=== PATIENT | male | born 1950 | race Caucasian/White ===

== ENCOUNTER 2022-04-01 06:56 | Day surgery (SDC) | payer OTHER, MEDICARE ==
[2022-04-01] MEDS ORDERED: LIDOCAINE 1% MPF 30 ML VIAL ONE (07:15)
[2022-04-01] MEDS ORDERED: GLYCOPYRROLATE 0.2 MG/ML SYR ONE (07:15)
[2022-04-01] MEDS ORDERED: propofoL 200 MG/20 ML VIAL IV ONE (07:15)
[2022-04-01] MEDS ORDERED: Ringers Lactate 1,000 ML IV ONE (07:23)
[2022-04-01 07:34] VITALS: O2SAT 100
--- NOTE | 2022-04-01 08:34 | ENDO RPT ---
[address], [address] COLONOSCOPY PROCEDURE REPORT EXAM DATE: 04/01/2022 PATIENT NAME: Kenisha Pinzon MR #: [id number] BIRTHDATE: 1950 ATTENDING: Jeff Rhoades DR STATUS: outpatient ASSESSMENT MANAGER: Liz Argueta and Dunia Corley RN INDICATIONS: The patient is a 72 yr old Male here for a colonoscopy due to colon cancer screening PROCEDURE PERFORMED: Screening Colonoscopy and Colonoscopy MEDICATIONS: Per Anesthesia. ESTIMATED BLOOD LOSS: None CONSENT: The patient understands the risks and benefits of the procedure and understands that these risks include, but are not limited to: sedation, allergic reaction, infection, perforation and/or bleeding. Alternative means of evaluation and treatment include, among others: physical exam, x-rays, and/or surgical intervention. The patient elects to proceed with this endoscopic procedure. DESCRIPTION OF PROCEDURE: During intra-op preparation period all mechanical medical equipment was checked for proper function. Hand hygiene and appropriate measures for infection prevention was taken. Procedure, possible complications, alternatives including, but not limited to possibility of bleeding, perforation, tear, infection, sepsis, need for surgery, need for blood transfusion, were explained to the patient. After the risks, benefits and alternatives of the procedure were thoroughly explained, Informed consent was verified, confirmed and timeout was successfully executed by the treatment team. The patient was placed in the left lateral position. A digital rectal exam was performed and revealed an enlarged prostate and A digital rectal exam was performed and revealed internal hemorrhoids. After appropriate level of anesthesia, the scope was passed. The EC-[id number] ([id number]) endoscope was introduced through the anus and advanced to the cecum, which was identified by both the appendix and ileocecal valve. The quality of the prep was fair. The instrument was then slowly withdrawn as the colon was fully examined. Scope withdrawal time was 10 minutes. COLON FINDINGS: Moderate sized internal hemorrhoids were found. Enlarged Prostate. Retroflexed views revealed no abnormalities. The scope was then completely withdrawn from the patient and the procedure terminated. ADVERSE EVENTS: There were no complications. IMPRESSIONS: 1. Moderate sized internal hemorrhoids 2. Enlarged Prostate RECOMMENDATIONS: 1. fiber rich diet 2. Monitor for any evidence of rectal bleeding. 3. yearly hemoquant 4. yearly hemoccult starting in 4 years 5. hemorrhoidal hygiene 6. follow up with primary care to discuss enlarged prostate RECALL: Return in 10 year(s) for Colonoscopy. Jeff Rhoades DR eSigned: Jeff Rhoades DR 04/01/2022 8:33 AM cc: CPT CODES: ICD9 CODES: PATIENT NAME: Kenisha Pinzon MR#: [id number]
[2022-04-01 09:24] VITALS: BP 132/64; TEMP 96.6
== END 2022-04-01 09:12 | disposition home or self-care (01) ==
LOC: OR 06:56
PROVIDERS: ATTEND Surgery
PROC: 0DJD8ZZ Inspection of Lower Intestinal Tract, Via Natural or Artificial Opening Endoscopic (ICD-10-PCS; principal; 2022-04-01 08:00)
DX: Z12.11 Encounter for screening for malignant neoplasm of colon (principal); K64.8 Other hemorrhoids; N40.0 Benign prostatic hyperplasia without lower urinary tract symptoms
CPT/HCPCS: J2704; J7120; G0121

== ENCOUNTER 2023-03-10 09:31 | Day surgery (SDC) | payer OTHER, MEDICARE ==
[2023-03-09 12:39] LABS: Potassium 4.6 mEq/L (3.5-5.1)
[2023-03-10] MEDS ORDERED: CEFAZOLIN SODIUM 2 GM/VIAL ONE (09:54)
[2023-03-10] MEDS ORDERED: Ringers Lactate 1,000 ML IV ONE (09:54)
[2023-03-10] MEDS ORDERED: BUPIVACAINE 0.25% PF 30 ML VIAL ONE (10:15)
[2023-03-10] MEDS ORDERED: propofoL 200 MG/20 ML VIAL IV ONE (10:43)
[2023-03-10] MEDS ORDERED: FENTANYL CITR 100 MCG/2 ML ONE (10:43)
[2023-03-10] MEDS ORDERED: ONDANSETRON 4 MG/2 ML VIAL ONE (10:44)
[2023-03-10] MEDS ORDERED: LIDOCAINE 2% MPF 5 ML VIAL ONE (10:44)
[2023-03-10] MEDS ORDERED: MIDAZOLAM HCL 2 MG/2 ML INJ ONE (10:44)
[2023-03-10] MEDS ORDERED: KETOROLAC 30 MG/ML INJ ONE (11:24)
--- NOTE | 2023-03-10 11:47 | P.OP ---
Preoperative diagnosis: Lower Back Lipoma Postoperative diagnosis: Lower Back Lipoma Primary procedure: Excision of Lower Back Lipoma Anesthesia: GETA + Local Estimated blood loss: <2cc Specimen: 13cm x 11cm x 4 cm lipoma up to fascia Findings: 13cm x 11cm x 4 cm lipoma up to fascia Complications: None Drain(s): ERNIE drain (3mm round ERNIE) Transferred to: Recovery Room Condition: Good
[2023-03-10 13:05] VITALS: BP 158/86; TEMP 97.5; O2SAT 100
--- NOTE | 2023-03-10 15:07 | OP ---
Date of Procedure: 03/10/2023 Surgeon: Jeff Rhoades MD, Preoperative Diagnosis: Lower back lipoma. Postoperative Diagnosis: Lower back lipoma. Procedure Performed: Excision of lower back lipoma. Anesthesia: General endotracheal plus local with 0.25% Marcaine. Estimated Blood Loss: Less than 2 cc. Specimen: A 13 cm x 11 cm x 4 cm lipoma extending up to the muscular fascia. Findings: Same as specimen. Complications: None. Drains: ERNIE drain which was a 3 mm round ERNIE drain. Disposition: The patient was transferred to the recovery room in good condition. Procedure In Detail: After informed consent was obtained, the patient was brought to the operating r oom, prepped and draped in the usual sterile fashion after adequate anesthesia was achieved. I made a linear incision overlying a lipomatous mass of the left lower back down to the subcutaneous tissues using electrocautery and dissected down to the capsule surrounding this lipomatous mesh. This was c ircumferentially dissected out using electrocautery and blunt dissection circumferentially to remove this 13 x 11 cm lipomatous mass off the fascia overlying the muscle. The mass was sent off for patho logic examination. The area was copiously irrigated and hemostasis was achieved with electrocautery. I then placed a 3 mm drain through a separate stab incision laterally into the wound bed and secure d it with a 3-0 nylon suture and then reapproximated the deep dermal plane using 3-0 Vicryl interrupt ed sutures and the skin was closed with a 4-0 Monocryl in a running fashion. Dermabond placed over t op. The patient tolerated the procedure well without evidence of complication and transferred to PAC U in good condition. All counts were correct at the end of the case. TK/MODL Voice ID: [id number] Report ID: [id number]
--- NOTE | 2023-03-10 15:24 | EKG ---
Test Date: 2023-03-09 Test Time: 12:10:22 Parts Representative: VENU MEASUREMENT RESULTS: Intervals: Rate: 51 SD: 150 QRSD: 82 QT: 426 QTc: 392 [place]: P: 64 SD: 150 QRS: 57 T: 70 INTERPRETIVE STATEMENTS: Sinus bradycardia Otherwise normal ECG No previous ECG available for comparison Electronically Signed On 03-10-23 15:21:31 CDT by Miguel Anguiano
== END 2023-03-10 13:40 | disposition home or self-care (01) ==
LOC: OR 09:31
PROVIDERS: ATTEND Surgery
PROC: 0JB70ZZ Excision of Back Subcutaneous Tissue and Fascia, Open Approach (ICD-10-PCS; principal; 2023-03-10 11:30)
DX: D17.1 Benign lipomatous neoplasm of skin and subcutaneous tissue of trunk (principal); I10 Essential (primary) hypertension; E78.00 Pure hypercholesterolemia, unspecified; Z86.73 Personal history of transient ischemic attack (TIA), and cerebral infarction without residual deficits; Z85.828 Personal history of other malignant neoplasm of skin
CPT/HCPCS: 93005; 80048; 36415; 88304; 11406; 12035; J2704; J2001; J3010; J2405; J7120; J2250